=== PATIENT | female | born 2000 | race African-American/Black ===

== ENCOUNTER 2021-01-19 17:41 | Emergency (ER) | payer OTHER, SELFPAY ==
[2021-01-19 17:56] VITALS: BP 124/77; PULSE 94; RESP 14; TEMP 36.9; O2SAT 100
[2021-01-19 18:36] LABS: Add Urine Microscopic? YES; Appearance Urine Cloudy (Clear); Bacteria Urine 1+ /hpf; Bilirubin Urine Negative (Negative); Blood Urine 3+ (Negative); Color Urine Amber (Yellow); Glucose Urine UA Negative (Negative); Ketones Urine Negative (Negative); Leukocyte Esterase Ur 2+ LEU/UL (Negative); Nitrate Urine Positive (Negative); Protein Urine 2+ mg/dL (Negative); RBC Urine >75 /hpf (0-2); Specific Grav Ur 1.005 (1.001-1.035); Squamous Epithelial Cell Urine Occasional /hpf (Few); WBC Urine >75 /hpf
--- NOTE | 2021-01-19 19:44 | ED.FEMALEGU ---
HPI - Female Genitourinary General Chief complaint: Urogenital-Female Stated complaint: abd pain Time Seen by Provider: 01/19/21 18:49 Source: patient Mode of arrival: ambulatory Limitations: no limitations History of Present Illness HPI Narrative: This is a 20-year-old female that presents the emergency department for dysuria since yesterday. Associated with urinary frequency and blood in the urine. Does not report any concern for STDs. Denies fever, flank pain, abdominal pain, or vomiting. Related Data Home Medications Medication Instructions Recorded Confirmed nitrofurantoin monohyd/m-cryst 01/19/21 [Macrobid] Allergies Allergy/AdvReac Type Severity Reaction Status Date / Time iodine Allergy Unknown Swelling Verified 01/19/21 18:37 shellfish derived Allergy Unknown Swelling Verified 01/19/21 18:37 Review of Systems Review of Systems: Narrative: CONSTITUTIONAL: Denies fever GASTROINTESTINAL: Denies abdominal pain, nausea, vomiting GENITOURINARY: Reports dysuria and hematuria. All systems reviewed & are unremarkable except as noted in HPI and below PMFSH Past Medical History Medical History (Updated 01/19/21 @ 19:48 by Myra Wellington PA-C) No active medical problems Social History Social History (Updated 01/19/21 @ 19:45 by Myra Wellington PA-C) Smoking status: Never smoker Exam Narrative: Exam Narrative: GENERAL: Well-appearing, well-nourished, and in no acute distress. HEAD: Normocephalic, atraumatic. EYES: EOMI. CHEST: Clear to auscultation. No respiratory distress. No wheezes rales or rhonchi HEART: Regular rate and rhythm. No murmur heard. Normal peripheral pulses. ABDOMEN: Soft, nontender, nondistended, normal active bowel sounds. No CVA tenderness EXTREMITIES: Normal range of motion. No edema. SKIN: Warm, dry, no rash. NEURO: No focal deficits. Alert and oriented x3. PSYCH: Normal mood and affect Course Vital Signs Vital signs: Vital Signs Temperature 98.5 F 01/19/21 17:56 Pulse Rate 94 01/19/21 17:56 Respiratory Rate 14 01/19/21 17:56 Blood Pressure 124/77 01/19/21 17:56 Pulse Oximetry 100 01/19/21 17:56 Temperature 98.5 F 01/19/21 17:56 Pulse Rate 94 01/19/21 17:56 Respiratory Rate 14 01/19/21 17:56 Blood Pressure 124/77 01/19/21 17:56 Pulse Oximetry 100 01/19/21 17:56 MDM - Female Genitourinary MDM Narrative Medical decision making narrative: Patient presents to the emergency department for dysuria since yesterday. Also reporting blood in the urine. She is afebrile and nontoxic-appearing. UA is with evidence of probable urinary tract infection. This will be sent for culture. Bedside test is negative. She denies any concern for STDs. Denies any fever, flank pain or abdominal pain. Abdominal exam is benign. No CVA tenderness. Patient has been started on Macrobid by urgent care for urinary tract infection. She has only had one dose of this. 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 She is stable and felt appropriate for further outpatient evaluation. She was given warnings to return the ER Lab Data Attestation: I reviewed the patient's lab results. Labs: Lab Results 01/19/21 Range/Units 18:15 Urine Color Marilyn (Yellow) Urine Appearance Cloudy H (Clear) Urine pH 7.0 (5.0-9.0) Ur Specific [place] 1.005 (1.001-1.035) Urine Protein 2+ H (Negative) mg/dL Urine Glucose (UA) Negative (Negative) mg/dL Urine Ketones Negative (Negative) mg/dL Ur Blood (Man) 3+ H (Negative) Urine Nitrate Positive H (Negative) Urine Bilirubin Negative (Negative) Urine Urobilinogen 4.0 H (<2.0) mg/dL Leukocyte Esterase Rfl 2+ H (Negative) CALDERON/UL Urine RBC >75 H (0-2) /hpf Urine WBC >75 H /hpf Ur Squamous Epith Cells Occasional (Few) /hpf Urine Bacteria 1+ H /hpf UCG Bedside Result Negative
== END 2021-01-19 20:15 | disposition home or self-care (01) ==
PROVIDERS: Emergency Medicine; Emergency Provider Family Medicine; PCP Emergency Medicine
DX: N30.01 Acute cystitis with hematuria (principal)
CPT/HCPCS: 81001; 81025; 87077; 87086; 87088; 87186; 99283

== ENCOUNTER 2022-02-12 18:47 | Emergency (ER) | payer OTHER, SELFPAY ==
--- NOTE | ~2022-02-12 | XR_ITS ---
XR ankle LT min 3V 02/12/2022 19:32 INDICATION: Left ankle pain PROCEDURE: 4 views left ankle COMPARISON: No prior studies for comparison. FINDINGS: Fracture, dislocation or subluxation is not identified. There is moderate lateral soft tiss ue swelling. There are degenerative changes of the midfoot. No foreign bodies are identified. IMPRESSION: 1: NO ACUTE BONE OR JOINT ABNORMALITY IDENTIFIED. Reviewed, dictated and finalized at location A.
[2022-02-12 18:51] VITALS: BP 95/70; PULSE 87; RESP 18; TEMP 36.6; O2SAT 100
--- NOTE | 2022-02-12 19:13 | ED.LOWEXIN ---
HPI - Extremity Injury (Lower) General Chief Complaint: Extremity Injury, Lower Stated Complaint: L. ankle injury Time Seen by Provider: 02/12/22 18:57 Source: patient Mode of arrival: wheelchair Limitations: no limitations History of Present Illness HPI Narrative: This is a 21 year old female that presents to the ER for left ankle pain after an injury today. Reports she was stepping out of her vehicle and stepped into a pothole. Reports twisting her left ankle. Reports swelling and pain laterally. Denies decreased ROM or numbness. Related Data Home Medications Medication Instructions Recorded Confirmed nitrofurantoin 01/19/21 monohydrate/macrocrystals 100 mg capsule (Macrobid) Allergies Allergy/AdvReac Type Severity Reaction Status Date / Time iodine Allergy Unknown Swelling Verified 02/12/22 19:09 shellfish derived Allergy Unknown Swelling Verified 02/12/22 19:09 Review of Systems Review of Systems: CONSTITUTIONAL: Denies fever MUSCULOSKELETAL: Reports joint pain, and myalgia. NEUROLOGIC: Denies numbness All systems reviewed & are unremarkable except as noted in HPI and below PMFSH Past Medical History Medical History (Updated 02/12/22 @ 20:15 by Myra Wellington PA-C) No active medical problems Social History Social History (Updated 01/19/21 @ 19:45 by Myra Wellington PA-C) Smoking status: Never smoker Exam Narrative: GENERAL: Well-appearing, well-nourished, and in no acute distress. HEAD: Normocephalic, atraumatic. EYES: EOMI. EXTREMITIES: Normal range of motion. Mild swelling about the left lateral malleoli. Normal DP pulse. Normal sensation SKIN: Warm, dry, no rash. NEURO: No focal deficits. Alert and oriented x3. PSYCH: Normal mood and affect Course Vital Signs Vital signs: Vital Signs Temperature 98 F 02/12/22 18:51 Pulse Rate 87 02/12/22 18:51 Respiratory Rate 18 02/12/22 18:51 Blood Pressure 95/70 L 02/12/22 18:51 Pulse Oximetry 100 02/12/22 18:51 Oxygen Delivery Room Air 02/12/22 18:51 Temperature 98 F 02/12/22 18:51 Pulse Rate 87 02/12/22 18:51 Respiratory Rate 18 02/12/22 18:51 Blood Pressure 95/70 L 02/12/22 18:51 Pulse Oximetry 100 02/12/22 18:51 Oxygen Delivery Room Air 02/12/22 18:51 MDM - Extremity Injury (Lower) MDM Narrative Medical decision making narrative: Patient presents to the emergency department for left ankle pain after an injury today. She is neurovascularly intact. Left ankle x-ray without acute osseous abnormalities. Patient placed in Kaleb wrap and given crutches. Instructed on care of ankle sprain. She is to follow-up with primary care doctor. She was given warnings to return to the ER Imaging Data Radiologist's impression: ITS Impressions Ankle X-Ray 02/12/22 19:36 IMPRESSION: 1: NO ACUTE BONE OR JOINT ABNORMALITY IDENTIFIED. Critical Care Time Critical Care Time Critical Care Time: No Discharge Plan Discharge Clinical Impression: Ankle sprain and strain Patient Disposition: Home, Self-Care Condition: Stable Instructions: Ankle Sprain (ED) Additional Instructions: Return to the emergency department if you experience fever, redness and swelling of your leg, numbness, or any other symptoms that are concerning to you Wear KALEB wrap and use crutches. No weight on the affected leg until able to bear weight without pain. Ice and elevate extremity. Pain medication as needed and directed. Follow up with your doctor for further care. Prescriptions: No Action nitrofurantoin monohyd/m-cryst [Macrobid] 100 mg Capsule Follow-up/Referrals: Javier Velasco MD [Primary Care Provider] - 1 Week
[2022-02-12] MEDS: ACETAMINOPHEN 500 MG TABLET 1000 MG PO (19:18)
[2022-02-12 20:29] VITALS: BP 129/75; PULSE 72; RESP 18; O2SAT 100
== END 2022-02-12 20:28 | disposition home or self-care (01) ==
PROVIDERS: Emergency Provider Emergency Medicine; PCP Emergency Medicine
DX: S93.402A Sprain of unspecified ligament of left ankle, initial encounter (principal); S96.912A Strain of unspecified muscle and tendon at ankle and foot level, left foot, initial encounter; X50.9XXA Other and unspecified overexertion or strenuous movements or postures, initial encounter
CPT/HCPCS: 73610; 99283; A9270